=== PATIENT | male | born 1950 | race Caucasian/White ===

== ENCOUNTER 2017-05-11 10:45 | Emergency (ER) | payer MEDICARE, OTHER ==
[2017-05-11] MEDS ORDERED: NS 0.9% 1000 ML* 1,000 ML IV ONE (11:08)
[2017-05-11 12:36] VITALS: BP 162/99
--- NOTE | 2017-05-11 14:15 | ED ---
Sarah Reyes SooYoung, scribed for Rizwan Hameed MD on 05/11/17 at 1100 . Syncope/Near Syncope - HPI Summary HPI Summary: A 66 y/o M presents to ED after syncopal episode upstairs on 4S at [facility] onset minutes [employer]. Pt is visiting a friend, when he felt he had to sit down and had witnessed LOC for a few seconds. Denies urinary incontinence, biting tongue, CP , SOB, fever, chills, palpitations, lightheadedness. He notes not eating/ drinking well recently, being under recent stress. Denies prev cardiac issues. No recent travel or surgeries. Smoker. ETOH. - History Of Current Complaint Chief Complaint: EDSyncope Time Seen by Provider: 05/11/17 10:55 Hx Obtained From: Patient Onset/Duration: Sudden Onset, Resolved Timing: Seconds Context: Witnessed, Loss Of Consciousness Alleviating Factor(s): Spontaneous Resolution Associated Signs And Symptoms: Decreased Oral Intake - has appetite, states not eating/drinking well, Other - pos: recent stress - Allergies/Home Medications Allergies/Adverse Reactions: Allergies Allergy/AdvReac Type Severity Reaction Status Date / Time No Known Allergies Allergy Verified 11/19/13 07:27 PMH/Surg Hx/FS Hx/Imm Hx Previously Healthy: Yes Endocrine/Hematology History: Denies: Hx Diabetes, Hx Thyroid Disease Cardiovascular History: Denies: Hx Hypertension Respiratory History: Denies: Hx Asthma, Hx Chronic Obstructive Pulmonary Disease (COPD) GI History: Denies: Hx Ulcer - Surgical History Surgery Procedure, Year, and Place: Perforated Ulcer Infectious Disease History: No Infectious Disease History: Denies: Hx Hepatitis, Hx Human Immunodeficiency Virus (HIV), Traveled Outside the [place] in Last 30 Days - Family History Known Family History: Negative: Cardiac Disease - Social History Occupation: Employed Full-time Lives: Alone Alcohol Use: Daily Alcohol Amount: 1/2 glass of wine/day Hx Substance Use: No Substance Use Type: Reports: None Hx Tobacco Use: Yes Smoking Status (MU): Light Every Day Tobacco Smoker Review of Systems Negative: Fever, Chills Positive: Other - neg: biting tongue Negative: Palpitations, Chest Pain Negative: Shortness Of Breath Positive: Other - pos: decreased oral intake Negative: incontinence Neurological: Other - neg: lightheadedness Positive: Syncope - witnessed, LOC Psychological: Other - pos: recent stress All Other Systems Reviewed And Are Negative: Yes Physical Exam - Summary Physical Exam Summary: The patient is well-nourished in no acute distress and in no acute pain. The skin is warm and dry and skin color reflects adequate perfusion. HEENT: The head is normocephalic and atraumatic. The pupils are equal and reactive. The conjunctivae are clear and without drainage. Nares are patent and without drainage. Mouth reveals dry mucous membranes and the throat is without erythema and exudate. The external ears are intact. The ear canals are patent and without drainage. The tympanic membranes are intact. Neck is supple with full range of motion and non-tender. There are no carotid bruits. There is no neck vein distension. Respiratory: Chest is non-tender. Lungs are clear to auscultation and breath sounds are symmetrical and equal. Cardiovascular: Heart is regular rate and rhythm. There is no murmur or rub auscultated. There is no peripheral edema and pulses are symmetrical and equal. Abdomen: The abdomen is soft and non-tender. There are normal bowel sounds heard in all four quadrants and there is no organomegaly palpated. Musculoskeletal: There is no back pain noted. Extremities are non-tender with full range of motion. There is good capillary refill. There is no peripheral edema or calf tenderness elicited. Neurological: Patient is alert and oriented to person, place and time. The patient has symmetrical motor strength in all four extremities. Cranial nerves are grossly intact. Deep tendon reflexes are symmetrical and equal in all four extremities. Psychiatric: The patient has an appropriate affect and does not exhibit any anxiety or depression. Triage Information Reviewed: Yes Vital Signs On Initial Exam: Initial Vitals Temp Pulse Resp BP Pulse Ox 97.4 F 87 26 151/91 98 05/11/17 10:47 05/11/17 10:47 05/11/17 10:47 05/11/17 10:47 05/11/17 10:47 Vital Signs Reviewed: Yes - [place] Coma Scale Coma Scale Total: 15 Diagnostics - Vital Signs Vital Signs Temp Pulse Resp BP Pulse Ox 05/11/17 10:50 97.4 F 87 21 151/91 98 05/11/17 10:47 97.4 F 87 26 151/91 98 - Laboratory Lab Statement: Any lab studies that have been ordered have been reviewed, and results considered in the medical decision making process. - EKG 1 Cardiac Rate: NL EKG Rhythm: Sinus Rhythm Re-Evaluation - Re-Evaluation 1 Re-Evaluation Time: 12:10 Change: Unchanged Comment: Discussed risk factors of afib, untreated it may lead to stroke. Pt voiced understanding but insists on leaving. Will D/C, recommend f/u with cardiology as soon as possible. Course/Dx Course Of Treatment: Pt is a66 y/o M presenting after witnessed syncopal episode upstairs on [facility] 4S minutes [employer]. Pt is visiting an ill friend. Denies urinary incontinence, biting tongue, CP, SOB, fever, chills, palpitations, lightheadedness. He notes not eating/drinking well recently, being under recent stress. Denies prev cardiac issues. No recent travel or surgeries. Smoker. ETOH. Pt given fluids in ED. Discussed with pt staying for labs, work-up, but pt declined. He did agree to finishing the IV fluids. Pt was advised that if a syncopal episode occurs again to have full work-up. D/C home with f/u to PCP. Prior to D/C, pt had an episode of a-fib. Discussed staying for work up, pt declined. Pt advised to follow up with cardiology as soon as possible. Discussed possible risks of going untreated including stroke. - Diagnoses Differential Diagnosis/HQI/PQRI: Positive: Dysrhythmia, Hypovolemia, Vasovagal Episode, Other - a-fib intermittant Provider Diagnoses: A-fib, Dehydration Discharge - Discharge Plan Condition: Stable Disposition: HOME Patient Education Materials: A-fib (Atrial Fibrillation) (ED), Dehydration (ED) Referrals: [facility] PHYSICIAN REFERRAL [Outside] Ericka Chaves MD [Medical Doctor] - As Soon As Possible No Primary Care Phys,NOPCP [Primary Care Provider] - Additional Instructions: As we discussed, you should follow up with cardiology, Dr. Chaves, as soon as possible. You experienced a-fibrillation today while at the ED. Untreated a-fib may lead to stroke. The documentation as recorded by the Sarah oliver SooYoung accurately reflects the service I personally performed and the decisions made by me, Rizwan Hameed MD.
== END 2017-05-11 12:35 | disposition home or self-care (01) ==
LOC: ED 10:45
DX: I48.91 Unspecified atrial fibrillation (principal); E86.0 Dehydration; R55 Syncope and collapse; F17.210 Nicotine dependence, cigarettes, uncomplicated
CPT/HCPCS: 93005; 99283

== ENCOUNTER 2018-07-25 12:48 | Day surgery (SDC) | payer MEDICARE ==
[~2018-07-25 12:48] MED LIST: Buffered Lidocaine 0.9% SYRIN* 5 ML/SYR SYRINGE INTRADERM ONE
[2018-07-25] MEDS ORDERED: ceFAZolin 2 GM in NS PREMIX(*) 2 GM/100 ML BAG IVPB ONE (13:05)
[2018-07-25] MEDS ORDERED: fentaNYL* 50 MCG/ML 2 ML VIAL (100 MCG VIAL) ONE (13:08)
[2018-07-25] MEDS ORDERED: Midazolam* 1 MG/ML 5 ML VIAL (5 MG) ONE (13:08)
[2018-07-25] MEDS ORDERED: Lidocain 1% EPI 1:100,000 * 30 ML MDV ONE (14:56)
[2018-07-25] MEDS ORDERED: Bupivacaine 0.25% SDV PF* 10 ML VIAL INJ ONE (14:57)
[2018-07-25] MEDS ORDERED: Naloxone* 0.4 MG/ML 1 ML VIAL IV PRN (15:44)
[2018-07-25] MEDS ORDERED: Propofol* 10 MG/ML 20 ML BTL IV PUSH ONE ×2 (16:28)
[2018-07-25 18:02] VITALS: BP 161/95
== END 2018-07-25 18:15 | disposition home or self-care (01) ==
LOC: OR 12:48
PROVIDERS: ATTEND Plastic Surgery
DX: C44.319 Basal cell carcinoma of skin of other parts of face (principal); Z72.0 Tobacco use
CPT/HCPCS: 88305; 88331; 88332; J0690; J2250; J2704; J3010; J3490

== ENCOUNTER 2018-08-15 10:28 | Day surgery (SDC) | payer MEDICARE ==
[~2018-08-15 10:28] MED LIST changes: +Famotidine IV* 10 MG/ML 2 ML (20 mg) IV ONE
[2018-08-15] MEDS ORDERED: Famotidine IV* 10 MG/ML 2 ML (20 mg) ONE (10:51)
[2018-08-15] MEDS ORDERED: ceFAZolin 2 GM in NS PREMIX(*) 2 GM/100 ML BAG IVPB ONE (10:52)
[2018-08-15] MEDS ORDERED: Midazolam* 1 MG/ML 5 ML VIAL (5 MG) ONE (11:35)
[2018-08-15] MEDS ORDERED: fentaNYL* 50 MCG/ML 2 ML VIAL (100 MCG VIAL) ONE (11:35)
[2018-08-15] MEDS ORDERED: DiMENhydriNATE IV* 50 MG/ML VIAL IV PUSH PRN (11:48)
[2018-08-15] MEDS ORDERED: fentaNYL* 50 MCG/ML 2 ML VIAL (100 MCG VIAL) IV PRN (11:48)
[2018-08-15] MEDS ORDERED: HYDROcodone/ACETAMIN 5-325 MG* 1 TAB PO PRN (11:48)
[2018-08-15] MEDS ORDERED: Acetaminophen TAB* 325 MG PO PRN (11:48)
[2018-08-15] MEDS ORDERED: Ketorolac INJ* 30 MG/ML 1 ML VIAL IV PRN (11:48)
[2018-08-15] MEDS ORDERED: Naloxone* 0.4 MG/ML 1 ML VIAL IV PRN (11:48)
[2018-08-15] MEDS ORDERED: Lidocain 1% EPI 1:100,000 * 30 ML MDV ONE (11:50)
[2018-08-15] MEDS ORDERED: Propofol* 10 MG/ML 20 ML BTL IV PUSH ONE (12:03)
[2018-08-15] MEDS ORDERED: Lidocaine 2% PF * 5 ML VIAL ONE (12:03)
[2018-08-15] MEDS ORDERED: Metoprolol Tartrate IV* 1 MG/ML 5 ML VIAL ONE (12:22)
[2018-08-15] MEDS ORDERED: Midazolam* 1 MG/ML 2 ML VIAL (2 MG) ONE (13:11)
[2018-08-15 14:09] VITALS: BP 143/95
== END 2018-08-15 14:24 | disposition home or self-care (01) ==
LOC: OR 10:28
PROVIDERS: ATTEND Plastic Surgery
DX: D04.39 Carcinoma in situ of skin of other parts of face (principal); Z72.0 Tobacco use
CPT/HCPCS: 88305; 88331; 88332; J0690; J2250; J2704; J3010; J3490

== ENCOUNTER 2024-10-08 15:35 | Inpatient (IN) ==
[2024-10-08] MEDS: Albuterol/Ipratropium NEB.SOL (2.5/0.5 MG) 3 ML NEB.SOLN INH ONE ×2 (15:48)
[2024-10-08] MEDS: Albuterol 2.5mg/3 ml (0.083%) NEB.SOLN INH ONE (15:49)
[2024-10-08 15:59] LABS: Hematocrit 48.7 % (38-53); Hemoglobin 16.3 g/dL (13.2-16.3); Mean Corpuscular Hemoglobin 30.1 pg (27-33); Mean Corpuscular Hgb Conc 33.4 g/dL (31-36); Mean Platelet Volume 8.5 fL (7.5-11.2); Platelet Count 261 10^3/uL (150-450); Red Blood Count 5.41 10^6/uL (4.06-5.63); White Blood Count 23.4 10^3/uL (3.6-10.2)
[2024-10-08 16:16] LABS: Albumin 4.9 g/dL (3.2-5.2); Calcium 10.8 mg/dL (8.6-10.3); Creatinine, Serum 1.13 mg/dL (0.67-1.17); Globulin 2.4 g/dL (2-4); Potassium 4.4 mmol/L (3.5-5.0); Total Bilirubin 0.7 mg/dL (0.2-1.0); Total Protein 7.3 g/dL (6.4-8.9); eGFR CKD-EPI 69.1 (>60)
[2024-10-08] MEDS: Digoxin IV 0.5 MG/2 ML AMP (0.25 MG/ML) IV SLOW PU ONE (17:11)
[2024-10-08 17:15] LABS: High Sensitivity Troponin 1 Hr 35 pg/mL (<20)
[2024-10-08 17:55] LABS: ABS Lymphocytes 0.6 10^3/uL (1.0-4.8); ABS Monocytes 1.7 10^3/uL (0.0-1.1); ABS Neutrophils 21.2 10^3/uL (1.5-7.6); ABS Nucleated RBC 0.01 10^3/ul; Giant Platelets Present; Lymphocyte % 2.5 %; RBC Morphology Normal (Normal)
[2024-10-08] MEDS: Lactated Ringers 1000 ml BAG 1,000 ML IV ONE ×2 (17:58→19:13)
[2024-10-08] MEDS: Iohexol 350 (CONTRAST) 500 ML MDV IV ONE (18:18)
[2024-10-08] MEDS: cefTRIAXone 1 gm/50 mL D5W 1 GM/50 ML BAG IV SCH (18:29)
[2024-10-08] MEDS ORDERED: Albuterol HFA INHALER 8 gm MDI INH PRN (19:08)
[2024-10-08] MEDS: Azithromycin 500 mg/250 ml NS 500 MG/250 ML BAG IVPB SCH (19:11)
[2024-10-08] MEDS: Metoprolol Tartrate 5 mg VIAL 5 ml VIAL (1 mg/ml) IV PRN (19:29)
[2024-10-08 20:15] LABS: Urine Appearance Clear; Urine Bilirubin Negative (Negative); Urine Blood Trace (Negative); Urine Color Light-Yellow; Urine Glucose Negative (Negative); Urine Ketones Negative (Negative); Urine Nitrite Negative (Negative); Urine Protein 1+ (>=30 mg/dL) (Negative); Urine Specific Gravity 1.036 (1.002-1.030); Urine Urobilinogen Negative (Negative)
[2024-10-08 20:26] LABS: Urine Bacteria Absent /HPF (Absent); Urine Red Blood Cell Trace(0-2/hpf) /HPF (0-Trace); Urine Squamous Epithelial Cell Present /HPF (Absent); Urine White Blood Cell Trace(0-5/hpf) /HPF (0-Trace)
[2024-10-08 20:33] LABS: C Reactive Protein 270.11 mg/L (<8.01); Magnesium 1.9 mg/dL (1.9-2.7)
[2024-10-08 21:01] LABS: TSH Ultra Thyroid Stim Horm 3.05 mcIU/mL (0.34-5.60)
[2024-10-08] MEDS: Heparin 5000 UNITS/ML 1 mL VIAL SUBCUT SCH (22:17)
[2024-10-09 04:22] LABS: ABS Lymphocytes 0.4 10^3/uL (1.0-4.8); ABS Monocytes 0.8 10^3/uL (0.0-1.1); ABS Neutrophils 13.9 10^3/uL (1.5-7.6); Eosinophil % 0.1 %; Hematocrit 41.8 % (38-53); Hemoglobin 14.2 g/dL (13.2-16.3); Lymphocyte % 2.6 %; Mean Corpuscular Hemoglobin 30.1 pg (27-33); Mean Corpuscular Hgb Conc 33.9 g/dL (31-36); Mean Corpuscular Volume 88.8 fL (80-97); Mean Platelet Volume 8.1 fL (7.5-11.2); Platelet Count 178 10^3/uL (150-450); Red Blood Count 4.71 10^6/uL (4.06-5.63); Red Cell Distribution Width 14.3 % (12-17); White Blood Count 15.1 10^3/uL (3.6-10.2)
[2024-10-09 04:55] LABS: Albumin 3.8 g/dL (3.2-5.2); Calcium 9.8 mg/dL (8.6-10.3); Creatinine, Serum 0.79 mg/dL (0.67-1.17); Globulin 1.9 g/dL (2-4); Magnesium 1.9 mg/dL (1.9-2.7); Potassium 4.6 mmol/L (3.5-5.0); Total Bilirubin 0.5 mg/dL (0.2-1.0); Total Protein 5.7 g/dL (6.4-8.9); eGFR CKD-EPI 94.4 (>60)
[2024-10-09] MEDS: NF: BUDESONIDE/GLYCOPYR/FORMOTEROL MDI (NF) INH SCH (07:59)
[2024-10-09] MEDS: Nicotine PATCH 7 MG/24 HR PATCH TRANSDERM SCH (08:04)
[2024-10-09] MEDS: Lactated Ringers 1000 ml BAG 1,000 ML IV SCH ×2 (08:41→16:08)
[2024-10-09] MEDS: Magnesium Sulfate IV 1GM/100ML 1 GM/100 ML BAG IV ONE (08:43)
[2024-10-09] MEDS ORDERED: Lactated Ringers 1000 ml BAG 1,000 ML IV SCH (09:00)
[2024-10-09] MEDS ORDERED: BUDESONIDE/GLYCOPYR/FORMOTEROL MDI (NF) INH SCH (09:29)
[2024-10-09] MEDS: CMCS:FLUTICAS/UMECLI/VILANT 200-62.5-25 MDI (NF) INH SCH (12:14)
[2024-10-09] MEDS ORDERED: Albuterol 2.5mg/3 ml (0.083%) NEB.SOLN INH PRN (15:37)
[2024-10-09] MEDS: Albuterol 2.5mg/3 ml (0.083%) NEB.SOLN INH ONE (15:44)
[2024-10-10 07:25] LABS: ABS Lymphocytes 0.9 10^3/uL (1.0-4.8); ABS Monocytes 0.9 10^3/uL (0.0-1.1); ABS Neutrophils 11.4 10^3/uL (1.5-7.6); Hematocrit 37.7 % (38-53); Hemoglobin 12.9 g/dL (13.2-16.3); Lymphocyte % 6.6 %; Mean Corpuscular Hemoglobin 30.4 pg (27-33); Mean Corpuscular Hgb Conc 34.2 g/dL (31-36); Mean Corpuscular Volume 88.9 fL (80-97); Mean Platelet Volume 8.1 fL (7.5-11.2); Platelet Count 191 10^3/uL (150-450); Red Blood Count 4.24 10^6/uL (4.06-5.63); White Blood Count 13.2 10^3/uL (3.6-10.2)
[2024-10-10 07:57] LABS: Albumin 3.2 g/dL (3.2-5.2); Albumin/Globulin Ratio 1.7 (1-3); Creatinine, Serum 0.68 mg/dL (0.67-1.17); Globulin 1.9 g/dL (2-4); Total Bilirubin 0.4 mg/dL (0.2-1.0); Total Protein 5.1 g/dL (6.4-8.9); eGFR CKD-EPI 98.8 (>60)
[2024-10-10] MEDS: CMCS:FLUTICAS/UMECLI/VILANT 200-62.5-25 MDI (NF) INH SCH (09:22)
[2024-10-10] MEDS: Amoxicillin/Clavul 875/125 TAB (Augmentin 875 tab) PO SCH (11:18)
[2024-10-10 12:46] VITALS: BP 137/93
[2024-10-10] MEDS: Influenza Vaccine *TRI* 2024-25* 0.5 ML SYRINGE IM ONE (14:56)
[2024-10-10] MEDS: COVID VAC 24-25 (12+) (Moderna) Syringe 0.5 mL IM ONE (14:57)
== END 2024-10-10 16:30 | disposition home or self-care (01) | DRG 871 ==
LOC: ED 15:35 → EDHOLD 18:05 → ICU 23:35
PROVIDERS: ADMIT Internal Medicine Critical Care Medicine; ATTEND Internal Medicine Critical Care Medicine